=== PATIENT | male | born 1955 | race Caucasian/White ===

== ENCOUNTER 2022-04-25 13:07 | Emergency (ER) | payer MEDICAID ==
[~2022-04-25] VITALS: Ht 170.2 cm; Wt 67.3 kg
[2022-04-25 13:16] VITALS: BP 146/105
--- NOTE | 2022-04-25 14:11 | NUR ---
Patient was seen and assessed by provider.
--- NOTE | 2022-04-25 14:12 | NUR ---
Accu check completed per Norman prior to medical clearance
== END 2022-04-25 14:12 | disposition home or self-care (01) ==
LOC: ER 13:08
DX: V89.2XXA Person injured in unspecified motor-vehicle accident, traffic, initial encounter; Y93.89 Activity, other specified; Y92.89 Other specified places as the place of occurrence of the external cause; Y99.8 Other external cause status
CPT/HCPCS: 82948; 99283